=== PATIENT | female | born 1990 | race Caucasian/White ===

== ENCOUNTER 2019-06-22 00:18 | Emergency (ER) | payer OTHER ==
[2019-06-22] MEDS ORDERED: ONDANSETRON HCL INJ/PF 4 MG/2 ML SDV IV ONE (02:43)
[2019-06-22] MEDS ORDERED: KETOROLAC TROMETHAMINE INJ/PF 30 MG/1 ML SDV IV ONE (02:43)
[2019-06-22] MEDS ORDERED: NORMAL SALINE 1000 ML 1,000 ML IV ONE (02:43)
--- NOTE | 2019-06-22 02:44 | ER Document Report ---
ED General - General Chief Complaint: Fever Stated Complaint: FEVER,SORE THROAT,VOMITING Time Seen by Provider: 06/22/19 02:25 Notes: Patient is a 28-year-old female that comes emergency department for chief complaint of a fever that started 3 days ago, she also developed cough, congestion, she states that cough is worsened and then this evening she started getting nauseated and she has vomited 4 times. She states after she started vomiting and could not keep down her Tylenol she came in for evaluation. She denies any obvious sick contacts. She has not had the influenza vaccine. She denies smoking, alcohol, she takes Lexapro and control, she denies any surgeries except for tonsillectomy. TRAVEL OUTSIDE OF THE [place] IN LAST 30 DAYS: No - Related Data Allergies/Adverse Reactions: shellfish derived Allergy (Verified 06/22/19 00:27) Home Medications: lexapro. BCPs Past Medical History - General Information source: Patient - Social History Smoking Status: Never Smoker Chew tobacco use (# tins/day): No Frequency of alcohol use: Occasional Drug Abuse: None Lives with: Family Family History: Reviewed & Not Pertinent Patient has suicidal ideation: No Patient has homicidal ideation: No Past Surgical History: Reports: Hx Tonsillectomy - Immunizations Immunizations up to date: Yes Hx Diphtheria, Pertussis, Tetanus Vaccination: Yes Review of Systems - Review of Systems Constitutional: See HPI EENT: See HPI Cardiovascular: No symptoms reported Respiratory: No symptoms reported Gastrointestinal: No symptoms reported Genitourinary: No symptoms reported Female Genitourinary: No symptoms reported Musculoskeletal: No symptoms reported Skin: No symptoms reported Hematologic/Lymphatic: No symptoms reported Neurological/Psychological: No symptoms reported Physical Exam - Vital signs Vitals: Temp Pulse Resp BP Pulse Ox 100.7 F H 112 H 20 113/77 96 06/22/19 00:25 06/22/19 00:25 06/22/19 00:25 06/22/19 00:25 06/22/19 00:25 - Notes Notes: GENERAL: Patient alert and interactive but she is flushed, disheveled, slightly ill-appearing HEAD: Normocephalic, atraumatic. EYES: Pupils equal, round, and reactive to light. Extraocular movements intact. ENT: Oral mucosa dry, tongue midline. Oropharynx unremarkable. Airway patent. Some nasal congestion noted, no nasal septal hematoma, TM's intact. NECK: Full range of motion. Supple. Trachea midline. LUNGS: Clear to auscultation bilaterally, no wheezes, rales, or rhonchi. No respiratory distress. Occasional mild cough. HEART: Tachycardia, normal rhythm, no murmur ABDOMEN: Soft, non-tender. Non-distended. Bowel sounds present in all 4 quadrants. GENITOURINARY: Deferred EXTREMITIES: Moves all 4 extremities spontaneously. No edema, normal radial and dorsalis pedis pulses bilaterally. No cyanosis. BACK: no cervical, thoracic, lumbar midline tenderness. No saddle anesthesia, normal distal neurovascular exam. Moves all extremities in full range of motion. NEUROLOGICAL: Alert and oriented x3. Normal speech. Cranial nerves II through XII grossly intact. PSYCH: Normal affect, normal mood. SKIN: Flushed Course - Re-evaluation Re-evalutation: Patient initially febrile, tachycardic, slightly ill-appearing. Given IV fluids, Toradol, Zofran. After this patient tolerated p.o. without any diff iculty, states she feels much improved, she appears much better on reevaluation. Tachycardia resolved. CBC, chemistry nonspecific, urinalysis contaminated and shows white blood cells and blood. Influenza B is positive. Chest x-ray is unremarkable. Strep is negative. Discussed with patient. Patient is outside the recommended Tamiflu window and she states she does not want this regardless after I discussed this with her. She will be provided with antinausea medication, I did discuss the ur ine and patient is actually requesting treatment because of borderline urinary symptoms developing as well. She was given Keflex for this. Discussed expectations, provided with work release, discussed follow-up, discussed return precautions. Patient states appreciation and agreement. Well-appearing and stable at time of discharge. - Vital Signs Vital signs: Temp Pulse Resp BP Pulse Ox 100.2 F 95 16 102/60 95 06/22/19 04:32 06/22/19 04:32 06/22/19 04:32 06/22/19 04:32 06/22/19 04:32 - Laboratory Result Diagrams: 06/22/19 03:15 06/22/19 03:15 Laboratory results interpreted by me: 06/22/19 06/22/19 06/22/19 03:15 03:15 03:15 RDW 15.3 H Sodium 134.3 L Chloride 97 L Glucose 114 H Urine Protein 30 H Urine Ketones TRACE H Urine Blood MODERATE H Ur Leukocyte Esterase MODERATE H Discharge - Discharge Clinical Impression: Influenza B, Cough Vomiting Qualifiers: Vomiting type: unspecified Vomiting Intractability: non-intractable Nausea presence: with nausea Qualified Code(s): R11.2 - Nausea with vomiting, un specified Fever Qualifiers: Fever type: unspecified Qualified Code(s): R50.9 - Fever, unspecified Condition: Stable Disposition: HOME, SELF-CARE Additional Instructions: Your work-up indicates that you are positive for influenza B. This is a virus that takes time to resolve, this will resolve on its own with time. Take Zofran for nausea/vomiting, take Tylenol and ibuprofen for pain and fever (you can take 600 mg of ibuprofen and 1000 mg of Tylenol every 6 hours if needed). Take the Keflex as prescribed to treat the suspected urinary tract infection as well. Rest and drink plenty of fluids. Follow-up with primary care. Return if you worsen including difficulty breathing, uncontrolled vomiting, or any other concerning or worsening symptoms. Prescriptions: Cephalexin Monohydrate [Keflex 500 mg Capsule] 500 mg PO BID 5 Days #10 capsule Ondansetron [Zofran Odt 4 mg Tablet] 1 - 2 tab PO Q4H PRN #15 tab.rapdis PRN Reason: For Nausea/Vomiting Forms: Return to Work
--- NOTE | 2019-06-22 03:04 | RADIOLOGY REPORT (SQ) ---
Chest 2 view on 06/22/2019 2:19 AM CLINICAL INDICATION: Fever, cough COMPARISON: None FINDINGS: The lungs are clear. Cardiac, hilar and mediastinal contours are within normal limits. Pulmonary vascularity is within normal limits. No bony abnormality is noted. IMPRESSION: No active disease.
[2019-06-22 03:32] LABS: ABSOLUTE LYMPHOCYTES (AUTO) 1.9 10^3/uL (0.5-4.7); ABSOLUTE MONOCYTES (AUTO) 0.5 10^3/uL (0.1-1.4); ABSOLUTE NEUT (AUTO) 3.6 10^3/uL (1.7-8.2); BASOPHILS % (AUTO) 0.3 % (0-2); HEMATOCRIT 38.5 % (36.0-47.0); HEMOGLOBIN 13.1 g/dL (12.0-15.5); LYMPHOCYTES % (AUTO) 31.4 % (13-45); MEAN CORPUSCULAR HEMOGLOBIN 27.8 pg (27.0-33.4); MEAN CORPUSCULAR HGB CONC 33.9 g/dL (32.0-36.0); MEAN CORPUSCULAR VOLUME 82 fl (80-97); MONOCYTES % (AUTO) 7.6 % (3-13); PLATELET COUNT 220 10^3/uL (150-450); RED CELL DISTRIBUTION WIDTH 15.3 % (11.5-14.0); SEGMENTED NEUTROPHILS % (AUTO) 60.7 % (42-78); TOTAL CELLS COUNTED % (AUTO) 100 %; WHITE BLOOD COUNT 5.9 10^3/uL (4.0-10.5)
[2019-06-22 03:40] LABS: AMORPHOUS SEDIMENT,URINE TRACE /HPF; APPEARANCE,URINE CLOUDY; BILIRUBIN,URINE NEGATIVE (NEGATIVE); GLUCOSE, URINE NEGATIVE (NEGATIVE); KETONES,URINE TRACE mg/dL (NEGATIVE); LEUKOCYTE ESTERASE,URINE MODERATE (NEGATIVE); NITRITE,URINE NEGATIVE (NEGATIVE); PROTEIN,URINE 30 mg/dL (NEGATIVE); URINE SPECIFIC GRAVITY 1.028; UROBILINOGEN,URINE NEGATIVE mg/dL (<2.0)
[2019-06-22 03:43] LABS: COLOR,URINE YELLOW
[2019-06-22 03:52] LABS: A TYPE INFLUENZA AG NEGATIVE (NEGATIVE); B INFLUENZA AG POSITIVE (NEGATIVE)
[2019-06-22 03:54] VITALS: BP 102/60
[2019-06-22 03:58] LABS: ALBUMIN 4.1 g/dL (3.5-5.0); ALKALINE PHOSPHATASE 69 U/L (38-126); ANION GAP 12 (5-19); ASPARTATE AMINO TRANSFERASE 28 U/L (14-36); BILIRUBIN,DIRECT 0.3 mg/dL (0.0-0.4); BILIRUBIN,TOTAL 0.5 mg/dL (0.2-1.3); BLOOD UREA NITROGEN 13 mg/dL (7-20); CALCIUM 8.8 mg/dL (8.4-10.2); CARBON DIOXIDE 25 mmol/L (22-30); CHLORIDE 97 mmol/L (98-107); GLUCOSE 114 mg/dL (75-110); POTASSIUM 3.9 mmol/L (3.6-5.0); TOTAL PROTEIN 7.5 g/dL (6.3-8.2)
[2019-06-22] MEDS ORDERED: ONDANSETRON ODT 4 MG TAB (6 TAB/ER DISP) PO PRN (04:18)
== END 2019-06-22 04:34 | disposition home or self-care (01) ==
LOC: ER 00:18
DX: J10.1 Influenza due to other identified influenza virus with other respiratory manifestations (principal); R50.9 Fever, unspecified; R05 Cough; R11.2 Nausea with vomiting, unspecified; R09.81 Nasal congestion; R00.0 Tachycardia, unspecified; Z79.899 Other long term (current) drug therapy; Z79.3 Long term (current) use of hormonal contraceptives; Z91.013 Allergy to seafood
CPT/HCPCS: 99283; 96361; 96374; 96375; 36415; 87070; 87880; 85025; 81025; 80053; 81001; 87804; 71046; J1885; J2405; J7030

== ENCOUNTER 2019-06-23 19:18 | Emergency (ER) | payer OTHER ==
[2019-06-23] MEDS ORDERED: BENZONATATE 100 MG CAPSULE PO ONE (19:46)
[2019-06-23] MEDS ORDERED: ONDANSETRON HCL INJ/PF 4 MG/2 ML SDV IM ONE (19:46)
[2019-06-23] MEDS ORDERED: NORMAL SALINE 1000 ML 1,000 ML IV ONE (19:47)
--- NOTE | 2019-06-23 19:48 | ER Document Report ---
ED Medical Screen (RME) - General Chief Complaint: Vomiting Stated Complaint: VOMITING/FLU Time Seen by Provider: 06/23/19 19:42 Mode of Arrival: Ambulatory Information source: Patient Notes: 28-year-old female presented to ED for complaint of nausea and vomiting. She states she was in the emergency room 2 days ago and diagnosed with a UTI and influenza B. She states she was discharged home with a prescription for Keflex and Zofran. She states she took the Zofran last 4 hours ago. She states she is vomited about 4-5 times today. States the last time she vomited was about 6 PM. States she is having some chest pain. She states she has been coughing all day as well with the influenza. She states she just got off of her menstrual cycle. I have greeted and performed a rapid initial assessment of this patient. A comprehensive ED assessment and evaluation of the patient, analysis of test results and completion of medical decision making process will be conducted by an additional ED providers. TRAVEL OUTSIDE OF THE [place] IN LAST 30 DAYS: No - Related Data Allergies/Adverse Reactions: shellfish derived Allergy (Verified 06/23/19 19:40) Past Medical History Past Surgical History: Reports: Hx Tonsillectomy - Immunizations Immunizations up to date: Yes Hx Diphtheria, Pertussis, Tetanus Vaccination: Yes Physical Exam - Vital signs Vitals: Temp Pulse Resp BP Pulse Ox 99.0 F 102 H 18 121/84 95 06/23/19 19:36 06/23/19 19:36 06/23/19 19:36 06/23/19 19:36 06/23/19 19:36 Course - Vital Signs Vital signs: Temp Pulse Resp BP Pulse Ox 99.0 F 102 H 18 121/84 95 06/23/19 19:36 06/23/19 19:36 06/23/19 19:36 06/23/19 19:36 06/23/19 19:36
--- NOTE | 2019-06-23 20:04 | RADIOLOGY REPORT (SQ) ---
EXAM DESCRIPTION: CHEST 2 VIEWS COMPLETED DATE/TIME: 06/23/2019 7:56 pm REASON FOR STUDY: Chest tenderness due to cough positive flu COMPARISON: 06/22/2019 EXAM PARAMETERS: NUMBER OF VIEWS: two views TECHNIQUE: Digital Frontal and Lateral radiographic views of the chest acquired. RADIATION DOSE: NA LIMITATIONS: none FINDINGS: LUNGS AND PLEURA: No opacities, masses or pneumothorax. No pleural effusion. MEDIASTINUM AND HILAR STRUCTURES: No masses or contour abnormalities. HEART AND VASCULAR STRUCTURES: Heart normal size. No evidence for failure. BONES: No acute findings. HARDWARE: None in the chest. OTHER: No other significant finding. IMPRESSION: NO ACUTE RADIOGRAPHIC FINDING IN THE CHEST. TECHNICAL DOCUMENTATION: JOB ID: [id number] [employer]- All Rights Reserved Reading location - IP/workstation name: [email or web address]
[2019-06-23 20:34] LABS: ABSOLUTE LYMPHOCYTES (AUTO) 2.9 10^3/uL (0.5-4.7); ABSOLUTE MONOCYTES (AUTO) 0.3 10^3/uL (0.1-1.4); ABSOLUTE NEUT (AUTO) 1.5 10^3/uL (1.7-8.2); BASOPHILS % (AUTO) 0.2 % (0-2); EOSINOPHILS % (AUTO) 0.1 % (0-6); HEMATOCRIT 41.4 % (36.0-47.0); HEMOGLOBIN 13.9 g/dL (12.0-15.5); LYMPHOCYTES % (AUTO) 61.8 % (13-45); MEAN CORPUSCULAR HEMOGLOBIN 27.9 pg (27.0-33.4); MEAN CORPUSCULAR HGB CONC 33.7 g/dL (32.0-36.0); MEAN CORPUSCULAR VOLUME 83 fl (80-97); MONOCYTES % (AUTO) 6.8 % (3-13); PLATELET COUNT 209 10^3/uL (150-450); RED BLOOD COUNT 4.99 10^6/uL (3.72-5.28); RED CELL DISTRIBUTION WIDTH 15.4 % (11.5-14.0); SEGMENTED NEUTROPHILS % (AUTO) 31.1 % (42-78); TOTAL CELLS COUNTED % (AUTO) 100 %; WHITE BLOOD COUNT 4.7 10^3/uL (4.0-10.5)
[2019-06-23 20:43] LABS: APPEARANCE,URINE SLIGHTLY-CLOUDY; BILIRUBIN,URINE NEGATIVE (NEGATIVE); COLOR,URINE YELLOW; GLUCOSE, URINE NEGATIVE (NEGATIVE); KETONES,URINE 20 mg/dL (NEGATIVE); PROTEIN,URINE NEGATIVE (NEGATIVE); URINE SPECIFIC GRAVITY 1.024; UROBILINOGEN,URINE NEGATIVE mg/dL (<2.0)
[2019-06-23 20:48] LABS: ALBUMIN 4.1 g/dL (3.5-5.0); ALKALINE PHOSPHATASE 67 U/L (38-126); ANION GAP 10 (5-19); ASPARTATE AMINO TRANSFERASE 29 U/L (14-36); BILIRUBIN,DIRECT 0.3 mg/dL (0.0-0.4); BILIRUBIN,TOTAL 0.4 mg/dL (0.2-1.3); BLOOD UREA NITROGEN 14 mg/dL (7-20); CALCIUM 8.9 mg/dL (8.4-10.2); CARBON DIOXIDE 29 mmol/L (22-30); CHLORIDE 99 mmol/L (98-107); GLUCOSE 87 mg/dL (75-110); TOTAL PROTEIN 7.5 g/dL (6.3-8.2)
[2019-06-23] MEDS ORDERED: METOCLOPRAMIDE HCL INJ/PF 10 MG/2 ML SDV IV ONE (21:41)
[2019-06-23] MEDS ORDERED: KETOROLAC TROMETHAMINE INJ/PF 30 MG/1 ML SDV IV ONE (21:47)
--- NOTE | 2019-06-23 21:53 | ER Document Report ---
ED General - General Chief Complaint: Vomiting Stated Complaint: VOMITING/FLU Time Seen by Provider: 06/23/19 19:42 Mode of Arrival: Ambulatory TRAVEL OUTSIDE OF THE [place] IN LAST 30 DAYS: No - HPI Onset: Other - over the last 4 days Onset/Duration: Gradual Quality of pain: Achy Severity: Moderate Pain Level: 2 Associated symptoms: Fever, Nausea, Vomiting, Weakness, Other - body aches Exacerbated by: Denies Relieved by: Other - zofran helps some with the nausea Similar symptoms previously: No Recently seen / treated by doctor: Yes - Patient diagnosed with the Flu and a UTI here in the ER yesterday Notes: 28 year old female with no significant PMH here for 4 days of flu like symptoms and a couple days of UTI like symptoms. The patient was seen in this ER yesterday and diagnosed with Influenza B and a UTI. The patient was prescribed Keflex and Zofran but she was outside the Tamiflu window. Patient continues to have nausea and vomiting and body aches (mostly in her chest) despite the medications prescribed. The patient says Zofran helps her nausea a little but she has vomited 5 times today. - Related Data Allergies/Adverse Reactions: shellfish derived Allergy (Verified 06/23/19 19:40) Home Medications: LEXAPRO, CONTROL Past Medical History - General Information source: Patient - Social History Smoking Status: Never Smoker Frequency of alcohol use: Occasional Drug Abuse: None Lives with: Family Family History: Reviewed & Not Pertinent Patient has suicidal ideation: No Patient has homicidal ideation: No Past Surgical History: Reports: Hx Tonsillectomy - Immunizations Immunizations up to date: Yes Hx Diphtheria, Pertussis, Tetanus Vaccination: Yes Review of Systems - Review of Systems Constitutional: Chills, Fever, Malaise, Weakness Respiratory: Cough Musculoskeletal: Other - body aches Physical Exam - Vital signs Vitals: Temp Pulse Resp BP Pulse Ox 99.0 F 102 H 18 121/84 95 06/23/19 19:36 06/23/19 19:36 06/23/19 19:36 06/23/19 19:36 06/23/19 19:36 - Notes Notes: GENERAL: Mildly ill appearing, well-nourished and in no acute distress. HEAD: Atraumatic, normocephalic. EYES: Pupils equal round and reactive to light, extraocular movements intact, sclera anicteric, conjunctiva are normal. ENT: TMs normal, nares patent, oropharynx clear without exudates. Moist mucous membranes. NECK: Normal range of motion, supple without lymphadenopathy or JVD. LUNGS: Breath sounds clear to auscultation bilaterally and equal. No wheezes rales or rhonchi. HEART: Regular rate and rhythm without murmurs, rubs or gallops. ABDOMEN: Soft, nontender, normoactive bowel sounds. No guarding, no rebound. No masses appreciated. EXTREMITIES: Normal range of motion, no pitting or edema. No clubbing or cyanosis. NEUROLOGICAL: Cranial nerves II through XII grossly intact. Normal speech, normal gait. PSYCH: Normal mood, normal affect. SKIN: Warm, Dry, normal turgor, no rashes or lesions noted. Course - Re-evaluation Re-evalutation: 06/23/19 21:53 The patient was seen in the ER yesterday and diagnosed with Influenza B and a UTI. She was prescribed Keflex and her UA looks better today. Patient is outside the Tamiflu window. Patient was give IM Zofran before I saw her. She still reanna bad so I ordered fluids, Reglan, and Toradol. Patient told to finish her previously prescribed Kelfex and to orally hydrate at home. Will DC with a script for Reglan since Zofran doesn't seem to be working well. - Vital Signs Vital signs: Temp Pulse Resp BP Pulse Ox 99.0 F 102 H 18 121/84 95 06/23/19 19:36 06/23/19 19:36 06/23/19 19:36 06/23/19 19:36 06/23/19 19:36 - Laboratory Result Diagrams: 06/23/19 20:10 06/23/19 20:10 Laboratory results interpreted by me: 06/23/19 06/23/19 20:00 20:10 RDW 15.4 H Lymph % (Auto) 61.8 H Absolute Neuts (auto) 1.5 L Seg Neutrophils % 31.1 L Urine Ketones 20 H Discharge - Discharge Clinical Impression: Influenza B UTI (urinary tract infection) Qualifiers: Urinary tract infection type: site unspecified Hematuria presence: without hem aturia Qualified Code(s): N39.0 - Urinary tract infection, site not specified Condition: Stable Disposition: HOME, SELF-CARE Instructions: Urinary Tract Infection ([facility]), Influenza ([facility]) Additional Instructions: Use Reglan only as needed for nausea/GI upset. Only use your previously prescribed Zofran if you think you got some relief from it. Drink plenty of fluids in the days to come. Finish your course of Keflex you were previously prescribed from the ER. Prescriptions: Metoclopramide HCl [Reglan 10 mg Tablet] 10 mg PO Q8H PRN 5 Days #10 tablet PRN Reason:
[2019-06-23 23:29] VITALS: BP 117/74
== END 2019-06-23 23:43 | disposition home or self-care (01) ==
LOC: ER 19:18
DX: J10.1 Influenza due to other identified influenza virus with other respiratory manifestations (principal); N39.0 Urinary tract infection, site not specified; R11.2 Nausea with vomiting, unspecified; R50.9 Fever, unspecified; R53.1 Weakness; R53.81 Other malaise; R07.9 Chest pain, unspecified; R05 Cough; Z79.899 Other long term (current) drug therapy; Z79.3 Long term (current) use of hormonal contraceptives; Z91.013 Allergy to seafood
CPT/HCPCS: 99283; 96372; 96361; 96374; 96375; 36415; 84703; 85025; 80053; 81001; 71046; J1885; J2765; J2405; J7030

== ENCOUNTER 2019-07-18 04:18 | Emergency (ER) | payer OTHER ==
[2019-07-18 07:20] LABS: ABSOLUTE NEUT (AUTO) 7.7 10^3/uL (1.7-8.2); BASOPHILS % (AUTO) 0.2 % (0-2); EOSINOPHILS % (AUTO) 0.2 % (0-6); HEMATOCRIT 39.2 % (36.0-47.0); HEMOGLOBIN 13.4 g/dL (12.0-15.5); LYMPHOCYTES % (AUTO) 10.6 % (13-45); MEAN CORPUSCULAR HEMOGLOBIN 28.6 pg (27.0-33.4); MEAN CORPUSCULAR HGB CONC 34.2 g/dL (32.0-36.0); MEAN CORPUSCULAR VOLUME 84 fl (80-97); MONOCYTES % (AUTO) 10.3 % (3-13); PLATELET COUNT 249 10^3/uL (150-450); RED BLOOD COUNT 4.69 10^6/uL (3.72-5.28); RED CELL DISTRIBUTION WIDTH 15.6 % (11.5-14.0); SEGMENTED NEUTROPHILS % (AUTO) 78.7 % (42-78); TOTAL CELLS COUNTED % (AUTO) 100 %; WHITE BLOOD COUNT 9.8 10^3/uL (4.0-10.5)
[2019-07-18 07:40] LABS: ALBUMIN 4.5 g/dL (3.5-5.0); ALKALINE PHOSPHATASE 79 U/L (38-126); ANION GAP 10 (5-19); ASPARTATE AMINO TRANSFERASE 26 U/L (14-36); BILIRUBIN,TOTAL 0.5 mg/dL (0.2-1.3); BLOOD UREA NITROGEN 15 mg/dL (7-20); CALCIUM 9.1 mg/dL (8.4-10.2); CARBON DIOXIDE 25 mmol/L (22-30); CHLORIDE 102 mmol/L (98-107); GLUCOSE 114 mg/dL (75-110); POTASSIUM 3.8 mmol/L (3.6-5.0); TOTAL PROTEIN 7.6 g/dL (6.3-8.2)
[2019-07-18] MEDS ORDERED: ONDANSETRON HCL INJ/PF 4 MG/2 ML SDV IV ONE (10:38)
[2019-07-18] MEDS ORDERED: HYDROMORPHONE HCL INJ/PF 2 MG/ML AMPULE IV ONE (10:38)
--- NOTE | 2019-07-18 10:44 | ER Document Report ---
ED General - General Chief Complaint: Abdominal Pain Stated Complaint: LOWER BACK PAIN Time Seen by Provider: 07/18/19 10:32 Mode of Arrival: Ambulatory Information source: Patient TRAVEL OUTSIDE OF THE [place] IN LAST 30 DAYS: No - HPI Onset: This morning - Patient at 0 130 from sleep with right lower quadrant pain Onset/Duration: Sudden Quality of pain: Achy Severity: Severe Pain Level: 5 Associated symptoms: Nausea, Vomiting Exacerbated by: Movement Relieved by: Remaining still Similar symptoms previously: No Recently seen / treated by doctor: No - Related Data Allergies/Adverse Reactions: latex Allergy (Verified 07/18/19 10:55) shellfish derived Allergy (Verified 06/23/19 19:40) Past Medical History - General Information source: Patient - Social History Smoking Status: Never Smoker Cigarette use (# per day): No Chew tobacco use (# tins/day): No Smoking Education Provided: No Frequency of alcohol use: None Drug Abuse: None Lives with: Family - Patient has 2 children ages 9 and 5 boys patient is patient reports she has donated blood multiple times in the past and she is O-. Family History: Reviewed & Not Pertinent Patient has suicidal ideation: No Patient has homicidal ideation: No Past Surgical History: Reports: Hx Tonsillectomy - Immunizations Immunizations up to date: Yes Hx Diphtheria, Pertussis, Tetanus Vaccination: Yes Review of Systems - Review of Systems Constitutional: See HPI, Malaise, Weakness EENT: No symptoms reported Cardiovascular: No symptoms reported Respiratory: No symptoms reported Gastrointestinal: Abdominal pain - Lower quadrant pain patient points to this area. She has positive psoas and obturator signs, Nausea, Vomiting Genitourinary: No symptoms reported Female Genitourinary: No symptoms reported, Other - On menstrual today Musculoskeletal: No symptoms reported Skin: No symptoms reported Hematologic/Lymphatic: No symptoms reported Neurological/Psychological: No symptoms reported Physical Exam - Vital signs Vitals: Temp Resp BP Pulse Ox 97.6 F 16 129/90 H 100 07/18/19 08:21 07/18/19 08:21 07/18/19 08:21 07/18/19 08:21 Interpretation: Normal - General General appearance: Alert In distress: Moderate - HEENT Head: Normocephalic Eyes: Normal Conjunctiva: Normal Cornea: Normal Pupils: PERRL Sinus: Normal Nasal: Normal Mouth/Lips: Normal - Respiratory Respiratory status: No respiratory distress Chest status: Nontender Breath sounds: Normal Chest palpation: Normal - Cardiovascular Rhythm: Regular Heart sounds: Normal auscultation Murmur: No Friction rub: No Dionicio's crunch: No - Abdominal Inspection: Normal Distension: No distension Bowel sounds: Normal - Has not eaten for at least 12 hours Tenderness: Tender, Guarding, Rebound - Right lower quadrant pain positive psoas positive obturator Organomegaly: No organomegaly - Genitourinary External exam: Normal - Extremities General upper extremity: Normal inspection General lower extremity: Normal inspection - Neurological Neuro grossly intact: Yes Cognition: Normal Orientation: AAOx4 Mobile Coma Scale Eye Opening: Spontaneous Rody Coma Scale Verbal: Oriented Mobile Coma Scale Motor: Obeys Commands Mobile Coma Scale Total: 15 Speech: Normal Cranial nerves: Normal Cerebellar coordination: Normal - Psychological Associated symptoms: Normal mood - Skin Skin Temperature: Warm Skin Moisture: Dry Course - Vital Signs Vital signs: Temp Pulse Resp BP Pulse Ox 97.9 F 85 16 124/72 100 07/18/19 13:07 07/18/19 13:07 07/18/19 13:07 07/18/19 13:07 07/18/19 13:07 - Laboratory Result Diagrams: 07/18/19 06:57 07/18/19 06:57 Laboratory results interpreted by me: 07/18/19 07/18/19 07/18/19 06:57 06:57 12:54 RDW 15.6 H Lymph % (Auto) 10.6 L Seg Neutrophils % 78.7 H Glucose 114 H Urine Protein 100 H Urine Blood LARGE H - Diagnostic Test Radiology reviewed: Reports reviewed Critical Care Note - Critical Care Note Total time excluding time spent on procedures (mins): 90 Comments: Advised patient of lab reports and CT reports but also advised her to follow-up with PMD outpatient basis. Had discussed this case with Dr. Mitchell and he advised this is not a surgical case and at this time I agree with him. Discharge - Discharge Clinical Impression: Abdominal pain Qualifiers: Abdominal location: unspecified location Qualified Code(s): R10.9 - Unspecified abdominal pain Condition: Good Disposition: HOME, SELF-CARE Instructions: Abdominal Pain ([facility]), Antinausea Medication ([facility]) Additional Instructions: Follow-up with personal doctor this week if symptoms persist and return to emergency room if symptoms worsen; avoid milk and meat products for at least 24 hours and take medicines as directed Prescriptions: Etodolac [Lodine] 400 mg PO BID PRN 7 Days #14 tablet PRN Reason: Azithromycin [Zithromax 250 mg Tablet] 250 mg PO ASDIR PRN #6 tablet PRN Reason: Forms: Return to Work
[2019-07-18] MEDS: NORMAL SALINE 1000 ML 1,000 ML IV PRN ×2 (10:48→10:53)
--- NOTE | 2019-07-18 11:37 | RADIOLOGY REPORT (SQ) ---
EXAM DESCRIPTION: CT ABD/PELVIS WITH IV ONLY COMPLETED DATE/TIME: 07/18/2019 11:24 am REASON FOR STUDY: pain COMPARISON: None. TECHNIQUE: CT scan of the abdomen and pelvis performed using helical scanning technique with dynamic intravenous contrast injection. No oral contrast. Images reviewed with lung, soft tissue, and bone windows. Reconstructed coronal and sagittal MPR images reviewed. Delayed images for evaluation of the urinary system also acquired. All images stored on PACS. All CT scanners at this facility use dose modulation, iterative reconstruction, and/or weight based d osing when appropriate to reduce radiation dose to as low as reasonably achievable (ALARA). [facility]: Dose Right [facility]: CareDose [facility]: Dose Right [facility]: Teradose 4D [facility]: Intio CONTRAST TYPE AND DOSE: contrast/concentration: Isovue 350.00 mg/ml; Total Contrast Delivered: 66.0 ml; Total Saline Delivered: 65.0 ml RENAL FUNCTION: None required. The patient is less than 50 years old. RADIATION DOSE: CT Rad equipment meets quality standard of care and radiation dose reduction techniq ues were employed. CTDIvol: NaN - NaN mGy. DLP: 0 mGy-cm.. LIMITATIONS: None. FINDINGS: LOWER CHEST: No significant findings. No nodules or infiltrates. LIVER: Normal size. No masses. No dilated ducts. SPLEEN: Normal size. No focal lesions. PANCREAS: No masses. No significant calcifications. No adjacent inflammation or peripancreatic fluid collections. Pancreatic duct not dilated. GALLBLADDER: No identified stones by CT criteria. No inflammatory changes to suggest cholecystitis. ADRENAL GLANDS: No significant masses or asymmetry. RIGHT KIDNEY AND URETER: No solid masses. No significant calcifications. No hydronephrosis or hyd roureter. LEFT KIDNEY AND URETER: No solid masses. No significant calcifications. No hydronephrosis or hydr oureter. AORTA AND VESSELS: No aneurysm. No dissection. Renal arteries, SMA, celiac without stenosis. RETROPERITONEUM: No retroperitoneal adenopathy, hemorrhage or masses. BOWEL AND PERITONEAL CAVITY: No masses or inflammatory changes. No free fluid or peritoneal masses. APPENDIX: Normal. PELVIS: No mass. No free fluid. Normal bladder. ABDOMINAL WALL: No masses. No hernias. BONES: No significant or acute findings. OTHER: No other significant finding. IMPRESSION: NO SIGNIFICANT OR ACUTE FINDING IN THE ABDOMEN OR PELVIS ON CT SCAN WITH IV CONTRAST. TECHNICAL DOCUMENTATION: JOB ID: [id number] Quality ID # [id number]: Final reports with documentation of one or more dose reduction techniques (e.g., Au tomated exposure control, adjustment of the mA and/or kV according to patient size, use of iterative reconstruction technique) 2010 [employer]- All Rights Reserved Reading location - IP/workstation name: [email or web address]
[2019-07-18 13:40] LABS: APPEARANCE,URINE CLEAR; BILIRUBIN,URINE NEGATIVE (NEGATIVE); COLOR,URINE YELLOW; GLUCOSE, URINE NEGATIVE (NEGATIVE); KETONES,URINE NEGATIVE (NEGATIVE); LEUKOCYTE ESTERASE,URINE NEGATIVE (NEGATIVE); NITRITE,URINE NEGATIVE (NEGATIVE); PROTEIN,URINE 100 mg/dL (NEGATIVE); URINE SPECIFIC GRAVITY 1.056; UROBILINOGEN,URINE NEGATIVE mg/dL (<2.0)
[2019-07-18] MEDS ORDERED: PROMETHAZINE HCL 25 MG TABLET PO ONE (14:00)
[2019-07-18] MEDS ORDERED: OXYCODONE-ACETAMINOPHEN 5-325 MG TABLET PO ONE (14:00)
[2019-07-18] MEDS ORDERED: KETOROLAC TROMETHAMINE INJ/PF 30 MG/1 ML SDV IV ONE (14:01)
[2019-07-18 14:44] VITALS: BP 120/81
[2019-07-18 14:44] LABS: CHLAM PCR DETECTED (NOT DETECT)
== END 2019-07-18 14:38 | disposition home or self-care (01) ==
LOC: ER 04:18
DX: R10.9 Unspecified abdominal pain (principal); M54.5 Low back pain; R10.31 Right lower quadrant pain; R11.2 Nausea with vomiting, unspecified; R53.81 Other malaise; R53.1 Weakness; Z88.9 Allergy status to unspecified drugs, medicaments and biological substances
CPT/HCPCS: 99285; 96361; 96374; 96375; 36415; 83690; 85025; 81025; 80053; 81001; 87491; 87591; 74177; J1885; J1170; J2405; J7030